=== PATIENT | male | born 1960 | race Caucasian/White ===

== ENCOUNTER 2023-11-21 14:43 | Emergency (ER) | payer OTHER ==
[2023-11-21] MEDS: Sodium Chloride 0.9% 1,000 ML IV SCH ×3 (16:15→23:11)
[2023-11-21 16:20] LABS: BASOPHILS ABSOLUTE AUTO 0.1 x10-3/uL (0.0-0.3); BASOPHILS PERCENT AUTO 0.8 % (0.3-3.8); EOSINOPHILS ABSOLUTE AUTO 0.5 x10-3/uL (0.0-0.6); EOSINOPHILS PERCENT AUTO 3.9 % (0.1-6.8); HEMATOCRIT 46.8 % (38.3-50.1); HEMOGLOBIN 15.9 g/dL (12.9-17.7); LYMPHOCYTES ABSOLUTE AUTO 1.5 x10-3/uL (0.5-4.5); LYMPHOCYTES PERCENT AUTO 12.9 % (15.8-45.3); MEAN CORPUSCULAR HGB CONC 33.9 g/dL (28.7-35.3); MEAN CORPUSCULAR VOLUME 91.4 fL (80.8-98.7); MONOCYTES ABSOLUTE AUTO 1.4 x10-3/uL (0.0-1.2); MONOCYTES PERCENT AUTO 11.9 % (5.5-15.2); NEUTROPHILS ABSOLUTE AUTO 8.4 x10-3/uL (1.7-6.9); NEUTROPHILS PERCENT AUTO 70.5 % (40.3-71.8); PLATELET COUNT,PLT 241 x10(3)uL (117-477); RED BLOOD CELL COUNT 5.12 x10(6)uL (3.90-5.90); RED CELL DISTRIBUTION WIDTH 14.3 % (12.4-15.0); WHITE BLOOD CELL COUNT,WBC 11.9 x10-3/uL (3.2-10.1)
[2023-11-21 16:24] LABS: BLOOD UREA NITROGEN,BUN 25 mg/dL (7-18); BUN/CREATININE RATIO 13.9 (9-20); CALCIUM 9.2 mg/dL (8.6-10.2); CARBON DIOXIDE,CO2 24 mmol/L (21-32); CHLORIDE,CL 104 mmol/L (100-110); CREATININE 1.8 mg/dL (0.70-1.30); EST CRCL DRUG DOSING (CG) 42.81 mL/min; ESTIMATED GFR 42 mL/min (>60); GLUCOSE RANDOM 116 mg/dL (80-116); POTASSIUM,K 4.6 mmol/L (3.5-5.3); SODIUM,NA 139 mmol/L (135-145)
[2023-11-21 16:30] LABS: A/G RATIO 0.8; ALANINE AMINOTRANSFERASE,ALT 32 U/L (12-36); ALBUMIN 3.5 g/dL (3.2-4.6); ALKALINE PHOSPHATASE 105 IU/L (56-112); ASPARTATE AMNIOTRANSFERASE,AST 18 IU/L (5-25); BILIRUBIN TOTAL 0.5 mg/dL (0.1-1.3); PROTEIN TOTAL,TP 7.8 g/dL (6.0-8.0)
[2023-11-21 16:48] LABS: INFLUENZA A NAA NEGATIVE (NEGATIVE); INFLUENZA B NAA NEGATIVE (NEGATIVE); RESPIRATORY SYNCYTIAL VIR NAA NEGATIVE (NEGATIVE)
[2023-11-21 17:07] LABS: CORONAVIRUS COVID-19 NAA NEGATIVE (NEGATIVE)
[2023-11-21 20:04] LABS: BILIRUBIN,URINE SMALL (NEGATIVE); GLUCOSE,URINE NORMAL (NORMAL); KETONES,URINE 15 mg/dL (NEGATIVE); LEUKOCYTE ESTERASE,URINE NEGATIVE (NEGATIVE); NITRITE,URINE NEGATIVE (NEGATIVE); OCCULT BLOOD,URINE MODERATE (NEGATIVE); PROTEIN,URINE 30 mg/dL (NEGATIVE); UROBILINOGEN,URINE 1 mg/dL (NEGATIVE)
[2023-11-21 20:06] LABS: AMORPHOUS SEDIMENT,URINE MODERATE; APPEARANCE,URINE SLIGHTLY CLOUDY (CLEAR); BACTERIA,URINE RARE (NS); COLOR,URINE YELLOW (YELLOW); RBC,URINE 0-5 (0-5); SQUAMOUS EPITHELIAL CELLS,UR OCCASIONAL (NS,R,O); WBC,URINE 0-5 (0-5)
[2023-11-21] MEDS: Dexamethasone 4 MG Tab PO ONE (22:00)
[2023-11-21] MEDS: Sulfamethoxazole/Trimethoprim 800-160 MG Tab PO ONE (22:00)
[2023-11-21 23:00] LABS: BASE EXCESS VENOUS,POC -3 mmol/L (-2 - 3+); PCO2 VENOUS,POC 44 mmHg (41-51); PH VENOUS,POC 7.33 pH Units (7.32-7.43)
[2023-11-21 23:20] LABS: TROPONIN I 9.1 pg/mL (4.0-60.3)
[2023-11-22 00:09] VITALS: BP 134/74; PULSE 85
== END 2023-11-22 00:05 | disposition home or self-care (01) ==
LOC: FB.ED 14:43
DX: I95.1 Orthostatic hypotension (principal); R79.89 Other specified abnormal findings of blood chemistry; R79.82 Elevated C-reactive protein (CRP); D72.829 Elevated white blood cell count, unspecified; R82.4 Acetonuria; R50.9 Fever, unspecified; I44.5 Left posterior fascicular block; I45.2 Bifascicular block; M19.90 Unspecified osteoarthritis, unspecified site; I10 Essential (primary) hypertension; E66.9 Obesity, unspecified; Z79.82 Long term (current) use of aspirin; Z88.0 Allergy status to penicillin; Z79.01 Long term (current) use of anticoagulants; Z79.899 Other long term (current) drug therapy
CPT/HCPCS: 0241U; 36415; 71045; 80053; 81001; 83605; 83735; 83880; 84484; 85025; 85379; 86140; 87040; 93005; 96360; 96361; 99285; A9270; J7030; J8540; 93010; 99284